=== PATIENT | female | born 1985 | race Caucasian/White ===

== ENCOUNTER 2020-01-20 08:05 | Emergency (ER) | payer OTHER, SELFPAY ==
--- NOTE | 2020-01-20 08:14 | ED.ABDPAIN ---
HPI - Abdominal Pain General Chief Complaint: Abdominal Pain Stated Complaint: abdo pain and diarrhea Time Seen by Provider: 01/20/20 08:30 Source: patient and RN notes reviewed Mode of arrival: ambulatory Limitations: no limitations History of Present Illness HPI narrative: 34-year-old female presents with concern for 3-day history of increasingly worse lower abdominal pain, bloating. Reports decreased appetite, indigestion, intermittent diarrhea, nausea. Denies vomiting. Reports dry heaving. Reports she was seen by her doctor 2 weeks ago for abdominal cramping and pain after intercourse and was prescribed dicyclomine. She reports dicyclomine improved symptoms briefly. She has not taken dicyclomine in the last 3 days. She denies fever. Reports her last menstrual period was 2 weeks ago. Reports she has a Mirena, cannot feel the strings. MD elicited complaint: abdominal pain Related Data Allergies Allergy/AdvReac Type Severity Reaction Status Date / Time No Known Allergies Allergy Verified 08/12/19 08:31 Review of Systems Review of Systems: Narrative: CONSTITUTIONAL: Reports malaise. Denies chills, sweats, or fever. CARDIOVASCULAR: Denies chest pain, palpitations, or edema. RESPIRATORY: Denies cough or dyspnea. GASTROINTESTINAL: Reports lower abdominal pain, nausea, dry heaving, diarrhea. Denies vomiting, bloody, or mucous stools. GENITOURINARY: Denies dysuria or hematuria. MUSCULOSKELETAL: Denies back pain, flank pain or myalgia. NEUROLOGIC: Denies headache. All systems reviewed & are unremarkable except as noted in HPI and below PMFSH Comments At time of signature, agree with nursing past medical, surgical, social and family history. There is no relevant family history pertinent to the presenting complaint Exam Narrative: Exam Narrative: GENERAL: Well-appearing, well-nourished, and in no acute distress. HEAD: Normocephalic, atraumatic. EYES: PERRLA, conjunctivae clear, and EOMI. ENT: Nares clear, turbinates pink, no rhinorrhea or epistaxis. Mucous membranes moist. Oropharynx without edema, erythema, or lesions. Tonsils not enlarged and without exudate. NECK: Supple. No lymphadenopathy CHEST: Speaks in full sentences. No respiratory distress. HEART: Regular rate and rhythm. ABDOMEN: Soft, flat, nondistended. Guarding, right lower and left lower quadrant tenderness. No rebound tenderness, no rigidity. No pulsatilla masses. Bowel sounds present in all four quadrants. No organomegaly. Negative Moser?s sign. Supra public tenderness. No scars or surface trauma. SKIN: Warm, dry, no rash. NEURO: Alert and oriented x3. PSYCH: Normal mood and affect Course Course Emergency Course: Patient is aware of, understands and agrees to reasons to be seen in the ED. Patient agrees to proceed directly to the emergency department. Portions of this record may have been created with voice recognition software Vital Signs Vital signs: Reviewed. Patient has been instructed to follow up with her primary care provider within the next week regarding her elevated blood pressure today. Transfer Transfered to: [place] Transportation: Other (pricate vehicle) Transfer rationale: Abdominal pain and tenderness Transfer comments: Stable for transfer via private vehicle MDM - Abdominal Pain MDM Narrative Medical decision making narrative: Exam findings history [facility] further evaluation emergency room; patient is non-toxic appearing and is in no distress. Patient is appropriate for transfer via private vehicle. Critical Care Time Critical Care Time Critical Care Time: No Discharge Plan Discharge Clinical Impression: Abdominal pain Qualifiers: Abdominal location: lower abdomen, unspecified Qualified Code(s): R10.30 - Lower abdominal pain, unspecified Patient Disposition: Acute Care Hospital Condition: Stable Additional Instructions: Your blood pressure was elevated above 120/80 today at [facility]. This puts you above the thr
[2020-01-20 08:15] VITALS: BP 148/94; PULSE 88; RESP 20; TEMP 36.7; O2SAT 99
== END 2020-01-20 08:46 | disposition short-term general hospital (02) ==
PROVIDERS: Emergency Provider Nurse Practitioner; PCP Family Medicine
DX: R10.30 Lower abdominal pain, unspecified (principal); Z87.440 Personal history of urinary (tract) infections
CPT/HCPCS: 99212; G0463

== ENCOUNTER 2020-01-20 09:08 | Emergency (ER) | payer OTHER, SELFPAY ==
--- NOTE | ~2020-01-20 | CT_ITS ---
EXAMINATION: CT abdomen pelvis w con EXAM DATE: 01/20/2020 12:44 INDICATION: Generalized abdominal pain with nausea. Symptoms 2-3 days. TECHNIQUE: Spiral CT of the abdomen and pelvis was performed following intravenous injection of 100 m L Omnipaque 350. Axial, coronal and sagittal images were reviewed. The dose-length product (DLP) fo r this examination was 253.39 mGy-cm. The exposure was tailored according to patient size (auto mA e xposure control), and iterative reconstruction (ASIR) was used as additional dose reduction technique . There is no prior study for comparison. FINDINGS: The liver, spleen, adrenal glands and pancreas are unremarkable. Gallbladder is unremarkab le. No biliary obstruction. Portal and splenic veins are patent. Kidneys enhance symmetrically. T here is no hydronephrosis. There is IUD which appears to be centrally located within the endometriu m, expected position. The ovaries are normal in size. The bladder is collapsed at time of imaging li miting evaluation. There is no retroperitoneal or pelvic lymphadenopathy. The appendix is normal. The stomach and small bowel are unremarkable. There is expected amount of c olonic stool. No free intraperitoneal gas. The heart is normal in size. There are no pericardial or pleural effusions. The lung bases are unremarkable. The bones are unremarkable. IMPRESSION: 1. No acute intra-abdominal findings. Reviewed, dictated and finalized at location B.
[2020-01-20 09:11] VITALS: BP 180/98; PULSE 74; RESP 18; TEMP 36.3; O2SAT 100
[2020-01-20 09:26] LABS: Basophils Absolute Auto 0.1 K/mm3 (0.0-0.1); Basophils Percent Auto 0.9 % (0.2-1.2); Eosinophils Absolute Auto 0.2 K/mm3 (0-0.3); Eosinophils Percent Auto 2.2 % (0-4.4); Hematocrit 45.9 % (37.0-47.0); Hemoglobin 16.1 g/dL (12.0-15.0); Immature Granulocyte Absolute 0.03 K/mm3 (0.00-0.031); Immature Granulocyte Percent A 0.4 % (0-0.5); Lymphocytes Percent Auto 17.5 % (18.3-44.2); Mean Corpuscular HGB Conc 35.1 g/dl (32-36); Mean Corpuscular Hemoglobin 29.9 pg (26-34); Mean Corpuscular Volume 85.3 fl (80-100); Mean Platelet Volume 10.8 fl (7.4-10.4); Monocytes Absolute Auto 0.9 K/mm3 (0.1-0.6); Neutrophils Absolute Auto 5.9 K/mm3 (1.3-6.7); Platelet Count Result 213 k/mm3 (150-375); Red Blood Count 5.38 M/mm3 (4.2-5.4); Red Cell Distribution Width 12.1 % (11.5-14.5); White Blood Count 8.6 K/mm3 (4.5-10.0)
[2020-01-20 09:38] LABS: Alanine Aminotransferase 16 U/L (4-35); Alkaline Phosphatase 85 U/L (38-126); Aspartate Amino Transferase 25 U/L (14-36); Bilirubin,Total 0.6 mg/dL (0.2-1.3); Blood Urea Nitrogen 10 mg/dL (7-17); Calcium 9.7 mg/dL (8.4-10.2); Carbon Dioxide 27 mmol/L (22-30); Chloride 103 mmol/L (98-107); Estimated CRCL calculation 86 ml/min; Estimated Glomerular Filt Rate > 60; Glucose 110 mg/dL (65-105); Lipase 24 U/L (23-300); Potassium 4.1 mmol/L (3.4-5.0); Sodium 137 mmol/L (137-145)
[2020-01-20 09:42] LABS: Add Urine Microscopic? YES; Amorphous Sediment Urine Few; Appearance Urine Cloudy (Clear); Bacteria Urine Trace /hpf; Bilirubin Urine Negative (Negative); Blood Urine 2+ (Negative); Color Urine Yellow (Yellow); Glucose Urine UA Negative (Negative); Ketones Urine Trace mg/dL (Negative); Leukocyte Esterase Ur Negative LEU/UL (Negative); Mucus Urine Heavy /lpf; Nitrate Urine Negative (Negative); Protein Urine 1+ mg/dL (Negative); Specific Grav Ur 1.026 (1.001-1.035); Squamous Epithelial Cell Urine Many /hpf (Few); Urobilinogen Urine Negative mg/dL (<2.0)
[2020-01-20 09:57] VITALS: BP 180/98; PULSE 77; RESP 18; O2SAT 100
[2020-01-20 10:53] VITALS: PULSE 78; RESP 16; O2SAT 100
--- NOTE | 2020-01-20 11:15 | PC.NURSE ---
PT REPORT GIVEN TO JOHN PARKER AT THIS TIME, PT RESTING COMFORTABLY AT BEDSIDE, VSS.
--- NOTE | 2020-01-20 12:15 | ED.ABDPAIN ---
HPI - Abdominal Pain General Chief Complaint: Abdominal Pain Stated Complaint: abdominal pain Time Seen by Provider: 01/20/20 10:08 History of Present Illness HPI narrative: Patient presents with 3 days of diarrhea and abdominal pain. She has had no appetite, but no nausea or vomiting. She has not yet had a bowel movement today. No fever or chills. She gauges the pain at 5 out of 10 now, but it was 10 out of 10 earlier. She has had a lot of urinary tract infections in the last couple years. She suspects some of them may have gone to the kidney. She has the Mirena for control, but takes no prescription drugs. She has not had a surgery. MD elicited complaint: abdominal pain Related Data Allergies Allergy/AdvReac Type Severity Reaction Status Date / Time No Known Allergies Allergy Verified 08/12/19 08:31 Review of Systems Review of Systems: Narrative: CONSTITUTIONAL: Denies fever, chills, or sweats. EYES: Denies visual changes, redness, or discharge. ENT: Denies rhinorrhea, congestion, sore throat, or otalgia. CARDIOVASCULAR: Denies chest pain, palpitations, or edema. RESPIRATORY: Denies cough or dyspnea. GASTROINTESTINAL: She has abdominal pain, but not nausea, vomiting. GENITOURINARY: Denies dysuria or hematuria. SKIN: Denies rash or itching. MUSCULOSKELETAL: Denies back pain, joint pain, or myalgia. NEUROLOGIC: Denies headache, numbness, or weakness. PSYCHIATRIC: Denies anxiety or depression. FOR[facility]LY [facility], [facility] Past Medical History Medical History (Updated 01/20/20 @ 13:40 by Simi Ramirez MD) Diarrhea Irritable bowel syndrome Surgical History Surgical History (Updated 01/20/20 @ 12:19 by Simi Ramirez MD) History of umbilical hernia repair Social History Social History (Updated 01/20/20 @ 12:20 by Simi Ramirez MD) Smoking status: Never smoker Alcohol intake: current Substance use: current Substance use type: marijuana Gender identity (if verbalized by the patient): Female Exam Narrative: Exam Narrative: GENERAL: Well-appearing, well-nourished, and in moderate distress.. HEAD: Normocephalic, atraumatic. EYES: PERRLA and EOMI. ENT: Nares clear, no rhinorrhea or epistaxis. Mucous membranes moist. NECK: Supple. CHEST: Clear to auscultation. No respiratory distress. HEART: Regular rate and rhythm. No murmur heard. Normal peripheral pulses. ABDOMEN: Soft, nontender, nondistended, normal active bowel sounds. EXTREMITIES: Normal range of motion. No edema. SKIN: Warm, dry, no rash. NEURO: No focal deficits. Alert and oriented x3. PSYCH: Pacing and crying. Course Reevaluation(s) Reevaluation #1: Went in to discuss the findings of the CAT scan. I suggested that she might have irritable bowel syndrome. She has a prescription for antispasmodics in her purse. I offered an appointment with Dr. Gtz, she accepts. I suggested that she might get scoped, and she said her aunt just of colon cancer. Date: 01/20/20 Time: 13:39 Vital Signs Vital signs: Vital Signs Temperature 97.4 F L 01/20/20 09:11 Pulse Rate 74 01/20/20 09:11 Respiratory Rate 18 01/20/20 09:11 Blood Pressure 180/98 H 01/20/20 09:11 Pulse Oximetry 100 01/20/20 09:11 Temperature 97.4 F L 01/20/20 09:11 Pulse Rate 89 01/20/20 12:23 Respiratory Rate 20 01/20/20 12:23 Blood Pressure 158/110 H 01/20/20 12:23 Pulse Oximetry 100 01/20/20 12:23 MDM - Abdominal Pain Differential Diagnosis Differential diagnosis: Likely acute appendicitis, calculus of kidney and other (Colitis, cholelithiasis) Medical Records Attestation: I reviewed the patient's medical records. Lab Data Attestation: I reviewed the patient's lab results. Result diagrams: 01/20/20 09:15 01/20/20 09:15 Labs: Lab Results 01/20/20 01/20/20 01/20/20 Range/Units 09:15 09:15 09:28 WBC 8.6 (4.5-10.0) K/mm3 RBC 5.38 (4.2-5.4) M/mm3 Hgb 16.1 H (12.0-15.0) g/dL Hct 45.9 (37.0-47.0)
[2020-01-20 12:23] VITALS: BP 158/110; PULSE 89; RESP 20; O2SAT 100
[2020-01-20] MEDS: SODIUM CHLORIDE 0.9% IV 1,000 ML 999 ML IV CONT (12:24)
[2020-01-20 14:12] VITALS: BP 148/72; PULSE 72; RESP 16; O2SAT 98
== END 2020-01-20 14:17 | disposition home or self-care (01) ==
PROVIDERS: Emergency Provider Emergency Medicine; PCP Family Medicine
DX: R10.84 Generalized abdominal pain (principal); R19.7 Diarrhea, unspecified; K58.0 Irritable bowel syndrome with diarrhea
CPT/HCPCS: 36415; 74177; 80053; 81001; 81025; 83690; 85025; 96360; 99284; J7030; Q9967